=== PATIENT | male | born 1985 | race Caucasian/White ===

== ENCOUNTER 2016-12-03 08:35 | Emergency (ER) | payer BC ==
[~2016-12-03] VITALS: Ht 175.3 cm; Wt 97.7 kg
[2016-12-03 09:22] VITALS: TEMP 97.1
[2016-12-03 09:30] LABS: MEAN CELL VOLUME 86 fl (80.0-100.0); MEAN CORPUSCULAR HGB CONC 36 g/dl (33.0-37.0); MEAN PLATELET VOLUME 9.6 fl (7.4-10.4); PLATELET COUNT 554 K/mm3 (130-400); RED BLOOD COUNT 6.69 M/mm3 (4.20-5.60); REDCELL DISTRIBUTION WIDTH-CV 12.4 % (11.5-14.5)
[2016-12-03 09:42] LABS: ADJUSTED CALCIUM 9.5 mg/dL (8.4-10.2); ALANINE AMINOTRANSFERASE 56 U/L (21-72); ALKALINE PHOSPHATASE 91 U/L (50-136); ANION GAP 18 mmol/L (7-16); BILIRUBIN,TOTAL 0.9 mg/dL (0.0-1.0); BLOOD UREA NITROGEN 14 mg/dL (9-20); CALCIUM 10.3 mg/dL (8.4-10.2); CARBON DIOXIDE 23 mmol/L (22-30); CHLORIDE 99 mmol/L (98-107); CREATININE, serum 2.11 mg/dL (0.66-1.25); GLUCOSE 116 mg/dL (74-106); LIPASE 68 U/L (23-300); SODIUM 141 mmol/L (137-145); TOTAL PROTEIN 8.8 gm/dL (6.4-8.2)
[2016-12-03 09:44] LABS: ADD PATHOLOGY DIFF REVIEW NO; HEMATOCRIT 57.5 % (42.0-52.0); HEMOGLOBIN 20.8 g/dl (13.5-18.0); MEAN CORPUSCULAR HEMOGLOBIN 31 pg (27.0-31.0); WHITE BLOOD COUNT 23.6 K/mm3 (4.8-10.8)
[2016-12-03 09:52] LABS: BAND 20 % (0-10); C-REACTIVE PROTEIN < 0.5 mg/dL (0.0-0.9); NEUTROPHILS 70 % (42.0-75.2); PLATELET ESTIMATE INCREASED (NORMAL); TOTAL CELLS COUNTED 100
[2016-12-03 10:04] LABS: ERYTHROCYTE SEDIMENTATION RATE 1 mm/hr (0-15)
[2016-12-03 11:26] LABS: GRANULAR CAST >12 /lpf; PH 5 (5-8); SQUAMOUS EPITHELIAL 0-2 /hpf; URINE APPEARANCE Cloudy; URINE BACTERIA Rare /hpf; URINE BILIRUBIN Negative (NEGATIVE); URINE BLOOD Negative (NEGATIVE); URINE COLOR Yellow; URINE GLUCOSE Negative (NEGATIVE); URINE KETONE Negative (NEGATIVE); URINE UROBILINOGEN Negative (NEGATIVE)
[2016-12-03 12:43] VITALS: BP 136/91; PULSE 84
== END 2016-12-03 12:45 | disposition short-term general hospital (02) ==
LOC: COL.ER 08:35
PROVIDERS: Physician Assistant
DX: K52.9 Noninfective gastroenteritis and colitis, unspecified (principal)
CPT/HCPCS: J0744; J7030